=== PATIENT | male | born 1960 | race Caucasian/White ===

== ENCOUNTER 2021-01-15 06:09 | Day surgery (SDC) | payer BC ==
[~2021-01-15] VITALS: Ht 180.3 cm; Wt 95.5 kg
[~2021-01-15 06:09] MED LIST: LOVA40 PO; Prinivil10 MG PO
--- NOTE | 2021-01-15 08:47 | NUR ---
01/15/21 0846 Jackie Pulido colonolscopy case done in or2. Dr Clement intibated with GA. see anethesia paperwork for care.
--- NOTE | 2021-01-15 09:26 | NUR ---
Discharge instructions reviewed with patient. Patient verbalizes understanding. Copy given to patient to take home.
--- NOTE | 2021-01-15 10:04 | NUR ---
Discharged via wheelchair to private car for ride home AT 0945
== END 2021-01-15 09:45 | disposition home or self-care (01) ==
LOC: ORSCMMR 06:09 → ORD 07:30 → ORSCMMR 09:45
PROVIDERS: Surgery
PROC: 06LY8CC Occlusion of Hemorrhoidal Plexus with Extraluminal Device, Via Natural or Artificial Opening Endoscopic (ICD-10-PCS; principal; 2021-01-15 07:30)
DX: K62.5 Hemorrhage of anus and rectum (principal); K64.4 Residual hemorrhoidal skin tags; K64.8 Other hemorrhoids; K57.30 Diverticulosis of large intestine without perforation or abscess without bleeding; I10 Essential (primary) hypertension; G47.33 Obstructive sleep apnea (adult) (pediatric); Z79.899 Other long term (current) drug therapy
CPT/HCPCS: J1100; J2405; J2704; J3010; J7120

== ENCOUNTER → 2023-09-29 | Outpatient (CLI) | payer BC ==
[2023-10-04 10:28] LABS: CALCIUM, URINE - PER 24H 276 mg/d (100-250); CALCIUM, URINE - PER VOLUME 18.4 mg/dL; CHLORIDE, URINE - PER 24H 165 mmol/d (140-250); CHLORIDE, URINE - PER VOLUME 110 mmol/L; CITRIC ACID, URINE - PER 24H 681 mg/d (320-1240); CITRIC ACID,URINE - PER VOLUME 454 mg/L; CREATININE, URINE - PER 24H 2295 mg/d (800-2100); CREATININE, URINE - PER VOLUME 153 mg/dL; HOURS COLLECTED 24 hr; MAGNESIUM, URINE PER 24H 195 mg/d (12-199); OXALATE, URINE - PER 24H 34 mg/d (16-49); OXALATE, URINE - PER VOLUME 23 mg/L; PH, URINE 6.17 (5.00-7.50); PHOSPHORUS, URINE - PER 24H 1170 mg/d (400-1300); PHOSPHORUS, URINE - PER VOLUME 78 mg/dL; POTASSIUM, URINE - PER 24H 78 mmol/d (25-125); POTASSIUM, URINE - PER VOLUME 52 mmol/L; SODIUM, URINE - PER 24H 171 mmol/d (51-286); SODIUM, URINE - PER VOLUME 114 mmol/L; SULFATE, URINE - PER 24H 15 mmol/d (6-30); SULFATE, URINE - PER VOLUME 10 mmol/L; TOTAL VOLUME 1500 mL; URIC ACID, URINE - PER 24H 668 mg/d (250-750); URIC ACID, URINE - PER VOLUME 44.5 mg/dL; URINE SUPERSATURATION INTERP Abnormal; URINE SUPERSATURATION, CAHPO4 4.44; URINE SUPERSATURATION, CAOX 7.36; URINE SUPERSATURATION, UA CALC 0.46
== END | disposition home or self-care (01) ==
LOC: LAB SHORT 14:00
PROVIDERS: Urology
DX: N20.0 Calculus of kidney (principal)
CPT/HCPCS: 81003; 82131; 82140; 82340; 82436; 82507; 82570; 83735; 83935; 83945; 84105; 84133; 84300; 84392; 84560